=== PATIENT | female | born 1930 | race Two or more races ===

== ENCOUNTER 2019-07-31 16:21 | Inpatient (IN) | payer MEDICARE, OTHER ==
[~2019-07-31] VITALS: Ht 152.4 cm; Wt 59.0 kg
[2019-07-31] MEDS ORDERED: DEXTROSE 50% 50 ML DISP.SYRIN IV PRN (18:15)
[2019-07-31] MEDS ORDERED: MEMANTINE HCL 10 MG TABLET PO SCH (18:30)
[2019-07-31] MEDS ORDERED: MEROPENEM 500 MG VIAL IV SCH (18:30)
[2019-07-31] MEDS: DOCUSATE SODIUM 100 MG CAPSULE PO SCH (18:30)
[2019-07-31] MEDS ORDERED: SENNOSIDES 1 TABLET PO SCH (18:30)
[2019-07-31 19:00] VITALS: BP 133/54
--- NOTE | 2019-07-31 19:27 | NUR ---
Patient received from [facility]. Report was received from JUAN DIEGO Baker. Pt is oriented to self only. Pt is cooperative. Pt is on MRSA isolation. The family is present at the bed side. Pt is bed bound, unable to move in bed independently. Skin assessment is done, pt has left hip incisions under dressing. Pt amputations of left foot toes. history obtained from the family.
--- NOTE | 2019-07-31 20:00 | NUR ---
VSS 98.0-62-17 BP 119/42. SATS 100% ON O2 @ 2LITERS NC. PATIENT NEWLY ADMITTED APPROX. 3 HOURS AGO. COLOR SLIGHTLY PALE BUT FAIR. SKIN WARM, DRY, & INTACT. NO BEDSORES OR BREAKDOWNS. ABDOMEN SOFTLY DISTENDED WITH +BOWEL SOUNDS. NO GENTILE FOR INC OF BOWEL AND BLADDER. 1+ ANKLE EDEMAS WITH ALL PERIPHERAL PULSES+. NO SIGNS OF ACUTE CARDIAC/RESPIRATORY DISTRESS OR SUPPRESSION. NO OBVIOUS SIGNS OF PAIN.
[2019-07-31 20:29] VITALS: BP 119/42
[2019-07-31] MEDS: BLOOD SUGAR DIAGNOSTIC 1 EACH STRIP VI SCH (21:26)
[2019-07-31] MEDS: MEMANTINE HCL 5 MG TABLET PO SCH (21:28)
[2019-07-31] MEDS: INSULIN GLARGINE,HUM 300 UNITS/3 ML CARTRIDGE SQ SCH (21:40)
[2019-07-31] MEDS: INSULIN REGULAR, HUMAN 300 UNIT/3 ML VIAL SQ PRN (21:42)
--- NOTE | 2019-08-01 | NUR ---
NURSE PLACED #22 ANGIO TO RIGHT HAND. ACCUCHECK AT MKHEIPT=873 MG/DL--COVERED WITH 3 UNITS OF REGULAR INSULIN & ROUTINE LANTUS 8 UNITS. NURSE SCANNED BLADDER RANDOMLY AND FOUND 365 CC IN BLADDER. WILL WATCH PATIENTS OUTPUT
[2019-08-01] MEDS: MEROPENEM 500 MG in IV NORMAL SALINE 50 ML IV SCH ×3 (00:10→23:07)
[2019-08-01 04:00] VITALS: BP 135/56
[2019-08-01] MEDS: LEVOTHYROXINE SODIUM 100 MCG TABLET PO SCH (06:56)
[2019-08-01] MEDS: PANTOPRAZOLE SODIUM 40 MG TABLET.DR PO SCH (06:56)
[2019-08-01] MEDS: BLOOD SUGAR DIAGNOSTIC 1 EACH STRIP VI SCH ×4 (07:05→20:55)
--- NOTE | 2019-08-01 07:35 | NUR ---
PT ON BED WITH EYES CLOSED, EASILY AROUSABLE WHEN AWAKEN, NOT IN RESPIRATORY DISTRESS, RECEIVED WITH 02 AT 2L/NC FOR COMFORT BREATHING.KHMER SPEAKING ONLY WHEN SPOKEN TO. NO C/P PAIN WHEN ASKED, WITH HEPLOCK ON THE RIGHT HAND WITH GAUGE 22, NO SS OF INFILTRATION NOTED ON THE AREA.
[2019-08-01 07:54] VITALS: BP 128/51
[2019-08-01] MEDS ORDERED: PREGABALIN 50 MG CAPSULE PO SCH (09:00)
[2019-08-01] MEDS: DONEPEZIL 10 MG TABLET PO SCH (09:04)
[2019-08-01] MEDS: MEMANTINE HCL 5 MG TABLET PO SCH ×2 (09:05→20:48)
[2019-08-01] MEDS: PREGABALIN 25 MG CAPSULE PO SCH (09:05)
[2019-08-01] MEDS: DOCUSATE SODIUM 100 MG CAPSULE PO SCH ×2 (09:05→16:43)
[2019-08-01] MEDS: ALLOPURINOL 100 MG TABLET PO SCH (09:05)
[2019-08-01] MEDS: AMLODIPINE 5 MG TABLET PO SCH (09:06)
[2019-08-01] MEDS: INSULIN REGULAR, HUMAN 300 UNIT/3 ML VIAL SQ PRN ×2 (12:47→16:41)
[2019-08-01 16:08] VITALS: BP 116/48
--- NOTE | 2019-08-01 16:39 | NUR ---
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
--- NOTE | 2019-08-01 19:30 | NUR ---
PT'S ON CONTACT ISOLATION FOR MRSA OF BOTH NARES AND ESBL OF URINE. CONTINUE ON MEROPENEM IV FOR ESBL URINE. NO ADVERSE REACTION NOTED. AFEBRILE. NO HEMATURIA , BUT NOTED URINE WITH FOUL SMELL. BS CHECKED NOSS OF HYPERGLYCEMIA NOTED. PT DOESN'T CALL FOR HELP, NEEDS ANTICIPATED. TURNED AND REPOSITIONED .KEPT CLEAN AND DRY.
--- NOTE | 2019-08-01 19:30 | NUR ---
NSG: RECEIVED PT'S LYING ON BED. ON CONTACT ISOLATION FOR MRSA OF BOTH NARES AND ESBL OF URINE. CONTINUE ON MEROPENEM IV FOR ESBL URINE. NO ADVERSE REACTION NOTED. NO HEMATURIA , BUT NOTED URINE WITH FOUL SMELL. BS CHECKED AND LANTUS SUB-Q GIVEN ORDERED.BLOOD SUGAR 111MG/DL. PATIENT TURNED AND REPOSITIONED .KEPT CLEAN AND DRY.
[2019-08-01 19:45] VITALS: BP 115/42
[2019-08-01] MEDS: MUPIROCIN 2% OINT 22 GM TUBE NS SCH (20:48)
[2019-08-01] MEDS: INSULIN GLARGINE,HUM 300 UNITS/3 ML CARTRIDGE SQ SCH (20:59)
[2019-08-01] MEDS: ENOXAPARIN SODIUM 30 MG/0.3 ML DISP.SYRIN SQ SCH (21:02)
--- NOTE | 2019-08-02 | NUR ---
NSG: RESTING EYE CLOSE. NO S/S OF PAIN OR DISCOMFORT NOTED AT THIS TIME.
[2019-08-02 04:40] VITALS: BP 147/56
[2019-08-02] MEDS: LEVOTHYROXINE SODIUM 100 MCG TABLET PO SCH (06:07)
[2019-08-02] MEDS: PANTOPRAZOLE SODIUM 40 MG TABLET.DR PO SCH (06:08)
[2019-08-02] MEDS: HYDROCODONE/APAP 5-325MG TABLET PO PRN ×4 (06:29→19:42)
[2019-08-02] MEDS: BLOOD SUGAR DIAGNOSTIC 1 EACH STRIP VI SCH ×4 (06:49→21:38)
--- NOTE | 2019-08-02 06:54 | NUR ---
NSG: PT REMAIN CALM AND COOPERATIVE, C/O PAIN @ 0630 AM. NOR[place] 5/325 MG 1 TAB PO GIVEN FOR PAIN. NO RESPIRATORY DISTRESS, ON 02 @ 2L/NC FOR COMFORT BREATHING.ZAMBIAN SPEAKING ONLY WHEN SPOKEN TO. HEPLOCK ON THE RIGHT HAND WITH GAUGE 22, NO SS OF INFILTRATION NOTED ON THE AREA. RESTING IN BED COMFORTABLY.
[2019-08-02 08:00] VITALS: BP 117/45
[2019-08-02] MEDS: MUPIROCIN 2% OINT 22 GM TUBE NS SCH ×2 (08:22→21:31)
[2019-08-02] MEDS: ALLOPURINOL 100 MG TABLET PO SCH (08:23)
[2019-08-02] MEDS: PREGABALIN 25 MG CAPSULE PO SCH (08:23)
[2019-08-02] MEDS: MEMANTINE HCL 5 MG TABLET PO SCH ×2 (08:23→21:31)
[2019-08-02] MEDS: AMLODIPINE 5 MG TABLET PO SCH ×2 (08:26→08:42)
[2019-08-02] MEDS: DONEPEZIL 10 MG TABLET PO SCH (08:26)
[2019-08-02] MEDS: DOCUSATE SODIUM 100 MG CAPSULE PO SCH ×2 (08:26→16:27)
[2019-08-02 08:39] VITALS: BP 140/54
[2019-08-02] MEDS: MEROPENEM 500 MG in IV NORMAL SALINE 50 ML IV SCH ×2 (11:33→23:35)
[2019-08-02] MEDS: INSULIN REGULAR, HUMAN 300 UNIT/3 ML VIAL SQ PRN ×3 (12:16→21:43)
[2019-08-02 16:38] VITALS: BP 102/38
[2019-08-02 19:30] VITALS: BP 135/52
--- NOTE | 2019-08-02 19:30 | NUR ---
pt in stable condition, c/o pain. family is by the bedside.
[2019-08-02] MEDS: INSULIN GLARGINE,HUM 300 UNITS/3 ML CARTRIDGE SQ SCH (21:44)
[2019-08-02] MEDS: ENOXAPARIN SODIUM 30 MG/0.3 ML DISP.SYRIN SQ SCH (21:44)
[2019-08-03] MEDS: HYDROCODONE/APAP 5-325MG TABLET PO PRN ×2 (01:43→10:57)
--- NOTE | 2019-08-03 02:19 | NUR ---
No acute events overnight, pt having intermittent sleep with periods of being awake. No fever, no nausea and no vomiting. pt is well managed with current pain regimen
[2019-08-03 06:15] VITALS: BP 137/54
[2019-08-03] MEDS: LEVOTHYROXINE SODIUM 100 MCG TABLET PO SCH (06:24)
[2019-08-03] MEDS: PANTOPRAZOLE SODIUM 40 MG TABLET.DR PO SCH (06:25)
[2019-08-03] MEDS: BLOOD SUGAR DIAGNOSTIC 1 EACH STRIP VI SCH ×4 (06:37→21:06)
[2019-08-03 07:12] LABS: BASOPHILS % (AUTO) 0.2 % (0.0-2.0); EOSINOPHILS # (AUTO) 0.2 K/uL (0.0-0.7); EOSINOPHILS % (AUTO) 2.2 % (0.0-7.0); HEMATOCRIT 27.6 % (31.2-41.9); HEMOGLOBIN 9.1 g/dL (10.9-14.3); LYMPHOCYTES # (AUTO) 1.6 K/uL (20.0-40.0); MEAN CORPUSCULAR HEMOGLOBIN 30.2 uug (24.7-32.8); MEAN CORPUSCULAR HGB CONC 33 g/dL (32.3-35.6); MEAN CORPUSCULAR VOLUME 91.8 fL (75.5-95.3); MONOCYTES # (AUTO) 0.9 K/uL (2.0-10.0); MONOCYTES % (AUTO) 10.6 % (0.0-11.0); NEUTROPHILS # (AUTO) 5.7 K/uL (1.8-8.9); PLATELET COUNT (AUTO) 173 K/uL (179-408); RED BLOOD CELL COUNT(AUTO) 3.01 MIL/uL (3.63-4.92); WHITE BLOOD COUNT (AUTO) 8.3 K/uL (3.8-11.8)
[2019-08-03 07:16] LABS: CARBON DIOXIDE 25 mmol/L (21-32); CHLORIDE 108 mmol/L (98-107); CREATININE 2.3 mg/dL (0.6-1.3); GLUCOSE 84 mg/dL (74-106); MAGNESIUM 2.1 mg/dL (1.8-2.4); PHOSPHOROUS 4.1 mg/dL (2.5-4.9); UREA NITROGEN, BLOOD 58 mg/dL (7-18)
[2019-08-03 08:05] VITALS: BP 131/53
[2019-08-03] MEDS: DOCUSATE SODIUM 100 MG CAPSULE PO SCH ×2 (09:29→17:26)
[2019-08-03] MEDS: MEMANTINE HCL 5 MG TABLET PO SCH ×2 (09:29→20:57)
[2019-08-03] MEDS: ALLOPURINOL 100 MG TABLET PO SCH (09:29)
[2019-08-03] MEDS: PREGABALIN 25 MG CAPSULE PO SCH (09:29)
[2019-08-03] MEDS: ERGOCALCIFEROL 50,000 UNIT CAPSULE PO SCH (09:29)
[2019-08-03] MEDS: DONEPEZIL 10 MG TABLET PO SCH (09:29)
[2019-08-03] MEDS: MUPIROCIN 2% OINT 22 GM TUBE NS SCH ×2 (09:30→20:57)
[2019-08-03] MEDS: AMLODIPINE 5 MG TABLET PO SCH (09:30)
--- NOTE | 2019-08-03 11:21 | NUR ---
INDIVIDUALIZED PLAN OF CARE
[2019-08-03] MEDS: INSULIN REGULAR, HUMAN 300 UNIT/3 ML VIAL SQ PRN ×2 (11:52→21:07)
[2019-08-03] MEDS: MEROPENEM 500 MG in IV NORMAL SALINE 50 ML IV SCH (11:53)
[2019-08-03 15:40] VITALS: BP 122/44
[2019-08-03] MEDS ORDERED: IBUPROFEN 400 MG TABLET PO PRN (18:15)
--- NOTE | 2019-08-03 19:20 | NUR ---
patient currently sleeping, no signs of distress. family is by the bedside
--- NOTE | 2019-08-03 19:39 | NUR ---
Patient sleeping at this time, easily arousable, Pakistani speaking mostly. No acute distress noted. Pt. on O2 NC at 1LPM with O2 saturation of 96%. NO acute distress noted. Vital signs taken and stable for patient. Patient on IV ATB therapy of Merrem 500mg q 12hrs for ESBL of urine with NO adverse reaction noted. All other meds administered and tolerated well. All other needs attended, family at bed side, safety measures in place, call light left at bed side, endorsed to next shift and will continue with care.
[2019-08-03 20:00] VITALS: BP 129/47
[2019-08-03] MEDS: ACETAMINOPHEN 325 MG TABLET PO SCH (21:00)
[2019-08-03] MEDS: INSULIN GLARGINE,HUM 300 UNITS/3 ML CARTRIDGE SQ SCH (21:07)
[2019-08-03] MEDS: ENOXAPARIN SODIUM 30 MG/0.3 ML DISP.SYRIN SQ SCH (21:08)
[2019-08-04] MEDS: MEROPENEM 500 MG in IV NORMAL SALINE 50 ML IV SCH ×2 (00:17→11:19)
--- NOTE | 2019-08-04 02:23 | NUR ---
No acute events overnight, pt able to sleep during shift. pt being turned as needed to protect the skin. Tylenol given earlier. No sign of distress
[2019-08-04 05:00] VITALS: BP 138/55
[2019-08-04] MEDS: ACETAMINOPHEN 325 MG TABLET PO SCH ×3 (06:31→21:18)
[2019-08-04] MEDS: PANTOPRAZOLE SODIUM 40 MG TABLET.DR PO SCH (06:31)
[2019-08-04] MEDS: LEVOTHYROXINE SODIUM 100 MCG TABLET PO SCH (06:31)
[2019-08-04] MEDS: BLOOD SUGAR DIAGNOSTIC 1 EACH STRIP VI SCH ×4 (06:55→21:19)
[2019-08-04 07:39] VITALS: BP 122/43
[2019-08-04] MEDS: ALLOPURINOL 100 MG TABLET PO SCH (08:32)
[2019-08-04] MEDS: MEMANTINE HCL 5 MG TABLET PO SCH ×2 (08:32→21:18)
[2019-08-04] MEDS: DONEPEZIL 10 MG TABLET PO SCH (08:32)
[2019-08-04] MEDS: DOCUSATE SODIUM 100 MG CAPSULE PO SCH ×2 (08:33→16:21)
[2019-08-04] MEDS: PREGABALIN 25 MG CAPSULE PO SCH (08:33)
[2019-08-04] MEDS: MUPIROCIN 2% OINT 22 GM TUBE NS SCH ×2 (08:33→21:18)
[2019-08-04] MEDS: AMLODIPINE 5 MG TABLET PO SCH (08:33)
[2019-08-04 15:49] VITALS: BP 154/60
[2019-08-04] MEDS: INSULIN REGULAR, HUMAN 300 UNIT/3 ML VIAL SQ PRN ×2 (16:20→21:22)
--- NOTE | 2019-08-04 16:27 | NUR ---
Received patient sleeping in bed. not in distress. Continue oxygen at 2 LPM via nasal cannula. Patient keeps on sleeping but responsive. MD Davis notified. Patient is on lyrica 75mg daily at 9am. MD Davis ordered hold for the meantime. Patient is on Tylenol 650mg on routine basis. Continue therapy for increase strenght and endurance. Continue pain management. Continue blood sugar monitoring with sliding scale protocol. no signs of hypo/hyperglycemia. will continue monitor
[2019-08-04 20:00] VITALS: BP 125/59
[2019-08-04] MEDS ORDERED: ALBUTEROL SULFATE 2.5 MG/3 ML NEBU NEB PRN (21:00)
[2019-08-04] MEDS: ENOXAPARIN SODIUM 30 MG/0.3 ML DISP.SYRIN SQ SCH (21:21)
[2019-08-04] MEDS: INSULIN GLARGINE,HUM 300 UNITS/3 ML CARTRIDGE SQ SCH (21:22)
--- NOTE | 2019-08-04 21:30 | NUR ---
Pt responds to voice and tactile stimuli through murmuring, but keeps eyes closed and appears very drowsy. Unable to give PO pills at this time, due to patient's condition. No signs of pain or discomfort noted. Will continue to monitor. VS remains stable, within baseline parameters.
[2019-08-05] MEDS: MEROPENEM 500 MG in IV NORMAL SALINE 50 ML IV SCH ×3 (00:30→23:39)
[2019-08-05 05:00] VITALS: BP 120/57
--- NOTE | 2019-08-05 05:30 | NUR ---
Patient is more awake, and alert now. Verbally responsive and able to follow directions. Diaper changed. With large BM, soft consistency, yellowish in color. L hip original dressing falling off, photo of wound taken and reinforced original dressing. Good perineal care provided. Turned every 2 hours, will continue to monitor and give AM medications if fully awake.
[2019-08-05] MEDS: ACETAMINOPHEN 325 MG TABLET PO SCH ×3 (06:44→22:22)
[2019-08-05] MEDS: LEVOTHYROXINE SODIUM 100 MCG TABLET PO SCH (06:44)
[2019-08-05] MEDS: PANTOPRAZOLE SODIUM 40 MG TABLET.DR PO SCH (06:44)
[2019-08-05 07:12] LABS: BASOPHILS % (AUTO) 0.7 % (0.0-2.0); EOSINOPHILS # (AUTO) 0.1 K/uL (0.0-0.7); EOSINOPHILS % (AUTO) 2.1 % (0.0-7.0); HEMATOCRIT 29.7 % (31.2-41.9); HEMOGLOBIN 9.7 g/dL (10.9-14.3); LYMPHOCYTES # (AUTO) 1.4 K/uL (20.0-40.0); LYMPHOCYTES % (AUTO) 21.7 % (20.5-51.5); MEAN CORPUSCULAR HEMOGLOBIN 30.1 uug (24.7-32.8); MEAN CORPUSCULAR HGB CONC 33 g/dL (32.3-35.6); MEAN CORPUSCULAR VOLUME 91.9 fL (75.5-95.3); MONOCYTES # (AUTO) 0.9 K/uL (2.0-10.0); MONOCYTES % (AUTO) 13.2 % (0.0-11.0); NEUTROPHILS % (AUTO) 62.3 % (38.5-71.5); PLATELET COUNT (AUTO) 229 K/uL (179-408); RED BLOOD CELL COUNT(AUTO) 3.23 MIL/uL (3.63-4.92); WHITE BLOOD COUNT (AUTO) 6.5 K/uL (3.8-11.8)
--- NOTE | 2019-08-05 07:30 | NUR ---
Able to give AM meds at around 0640, tolerated well. However, initial BS check: 56 at 0650. Gave apple sauce and orange juice, rechecked at 0710: still 56. Rechecked at this time, BS: 93. AM nurse made aware, encouraged to eat good breakfast intake. Pt still alert and verbally responsive. VS stable.
[2019-08-05] MEDS: BLOOD SUGAR DIAGNOSTIC 1 EACH STRIP VI SCH ×4 (07:34→20:52)
[2019-08-05 08:20] LABS: ALANINE AMINOTRANSFERASE 13 U/L (14-59); ALKALINE PHOSPHATASE 173 U/L (50-136); ASPARTATE AMINOTRANSFERASE 21 U/L (15-37); CARBON DIOXIDE 26 mmol/L (21-32); CREATININE 2.1 mg/dL (0.6-1.3); GLUCOSE 64 mg/dL (74-106); MAGNESIUM 2.2 mg/dL (1.8-2.4); TOTAL PROTEIN, SERUM 6.2 g/dL (6.4-8.2); UREA NITROGEN, BLOOD 53 mg/dL (7-18)
[2019-08-05 08:40] VITALS: BP 143/48
[2019-08-05 08:56] LABS: BILIRUBIN,TOTAL 0.4 mg/dL (0.2-1.0); CHLORIDE 111 mmol/L (98-107); POTASSIUM 5.4 mmol/L (3.5-5.1)
[2019-08-05] MEDS: AMLODIPINE 5 MG TABLET PO SCH (09:16)
[2019-08-05] MEDS: DONEPEZIL 10 MG TABLET PO SCH (09:17)
[2019-08-05] MEDS: ALLOPURINOL 100 MG TABLET PO SCH (09:17)
[2019-08-05] MEDS: MUPIROCIN 2% OINT 22 GM TUBE NS SCH ×2 (09:17→20:06)
[2019-08-05] MEDS: MEMANTINE HCL 5 MG TABLET PO SCH ×2 (09:17→20:04)
[2019-08-05 14:16] LABS: CHOLESTEROL 104 mg/dL (<200); HDL CHOLESTEROL 41 mg/dL (40-60); PHOSPHOROUS 3.9 mg/dL (2.5-4.9); TRIGLYCERIDES 89 MG/DL (30-150)
--- NOTE | 2019-08-05 14:31 | NUR ---
Patient is AAO x2, able to express self in welsh at times. No acute distress. patient was very active throughout shift and awake for most of the activities; Patient was up on w/c to eat lunch during shift. Denies any pain at this time. Pt. on ATB therapy of Merrem 500mg IV Q 12 hrs. No adverse reaction noted. Pt. on PT/OT therapy. Needs attended on anticipation; Safety measures in place, call light left at bed side and will continue with care.
[2019-08-05 15:46] VITALS: BP 105/54
[2019-08-05 17:01] LABS: THYROID STIMULATING HORMONE 0.626 mIU/mL (0.358-3.740)
[2019-08-05] MEDS: INSULIN REGULAR, HUMAN 300 UNIT/3 ML VIAL SQ PRN ×2 (17:30→20:51)
--- NOTE | 2019-08-05 18:33 | NUR ---
No new change of condition noted at this time and will continue with care.
--- NOTE | 2019-08-05 19:20 | NUR ---
PATIENT IS IN BED, ALERT AND VERBALLY RESPONSIVE. AFEBRILE. NO RESPIRATORY DISTRESS. NO COMPLAINTS AT THIS TIME. PATIENT WITH FAMILY AT BEDSIDE. HEAD OF BED ELEVATED AT 30 DEGREES, WITH ONGOING O2 AT 2L/MIN VIA NC. JIM WELL. RESPIRATION EVEN AND LABORED. WILL CONTINUE TO MONITOR PATIENT. ALL NEEDS ATTENDED.
[2019-08-05 20:00] VITALS: BP 142/55
[2019-08-05] MEDS: ENOXAPARIN SODIUM 30 MG/0.3 ML DISP.SYRIN SQ SCH (20:02)
[2019-08-05] MEDS: HYDROCODONE/APAP 5-325MG TABLET PO PRN (20:05)
[2019-08-05] MEDS: INSULIN GLARGINE,HUM 300 UNITS/3 ML CARTRIDGE SQ SCH (20:50)
[2019-08-05] MEDS: Z GUARD REMEDY PASTE 57 GM TUBE TOP SCH (20:52)
[2019-08-06 05:00] VITALS: BP 139/54
[2019-08-06] MEDS: LEVOTHYROXINE SODIUM 100 MCG TABLET PO SCH (06:28)
[2019-08-06] MEDS: ACETAMINOPHEN 325 MG TABLET PO SCH ×3 (06:28→21:50)
[2019-08-06] MEDS: PANTOPRAZOLE SODIUM 40 MG TABLET.DR PO SCH (06:28)
--- NOTE | 2019-08-06 06:44 | NUR ---
PATIENT IN BED, ALERT AND VERBALLY RESPONSIVE. AFEBRILE. NO RESPIRATORY DISTRESS. PATIENT WITH EPISODE OF MOANING UPON MOVEMENT DURING ADLS, BUT PAIN RELIEVED ONCE DONE. RECEIVED DUE MEDICATIONS. TOLERATED WELL. CONTINUES TO BE ON O2 AT 2L/MIN VIA NC. RESPIRATION EVEN AND UNLABORED. NO SOB NOTED. IN NO RESPIRATORY OR ACUTE DISTRESS. KEPT PATIENT WARM, DRY, AND COMFORTABLE. LEFT PATIENT WITH BED WHEELS LOCKED, CALL LIGHT WITHIN REACH. BED AT LOW POSITION.
[2019-08-06] MEDS: BLOOD SUGAR DIAGNOSTIC 1 EACH STRIP VI SCH ×4 (06:49→21:00)
[2019-08-06 07:46] LABS: BASOPHILS # (AUTO) 0.1 K/uL (0.0-8.0); BASOPHILS % (AUTO) 0.9 % (0.0-2.0); EOSINOPHILS # (AUTO) 0.1 K/uL (0.0-0.7); EOSINOPHILS % (AUTO) 1.8 % (0.0-7.0); HEMATOCRIT 28.4 % (31.2-41.9); HEMOGLOBIN 9.1 g/dL (10.9-14.3); LYMPHOCYTES # (AUTO) 1.3 K/uL (20.0-40.0); LYMPHOCYTES % (AUTO) 21.4 % (20.5-51.5); MEAN CORPUSCULAR HEMOGLOBIN 29.7 uug (24.7-32.8); MEAN CORPUSCULAR HGB CONC 32 g/dL (32.3-35.6); MEAN CORPUSCULAR VOLUME 92.2 fL (75.5-95.3); MONOCYTES # (AUTO) 0.8 K/uL (2.0-10.0); MONOCYTES % (AUTO) 12.4 % (0.0-11.0); NEUTROPHILS % (AUTO) 63.5 % (38.5-71.5); PLATELET COUNT (AUTO) 229 K/uL (179-408); RED BLOOD CELL COUNT(AUTO) 3.08 MIL/uL (3.63-4.92); WHITE BLOOD COUNT (AUTO) 6.3 K/uL (3.8-11.8)
[2019-08-06 07:52] VITALS: BP 150/60
[2019-08-06] MEDS: ALLOPURINOL 100 MG TABLET PO SCH (08:15)
[2019-08-06] MEDS: AMLODIPINE 5 MG TABLET PO SCH (08:16)
[2019-08-06] MEDS: MEMANTINE HCL 5 MG TABLET PO SCH ×2 (08:16→21:49)
[2019-08-06] MEDS: DONEPEZIL 10 MG TABLET PO SCH (08:16)
[2019-08-06] MEDS: MUPIROCIN 2% OINT 22 GM TUBE NS SCH (08:17)
[2019-08-06] MEDS: Z GUARD REMEDY PASTE 57 GM TUBE TOP SCH ×2 (08:17→21:58)
[2019-08-06] MEDS: HYDROCODONE/APAP 5-325MG TABLET PO PRN (08:17)
[2019-08-06 08:25] LABS: ALANINE AMINOTRANSFERASE 16 U/L (14-59); ALKALINE PHOSPHATASE 167 U/L (50-136); ASPARTATE AMINOTRANSFERASE 20 U/L (15-37); BILIRUBIN,TOTAL 0.4 mg/dL (0.2-1.0); CARBON DIOXIDE 26 mmol/L (21-32); CHLORIDE 111 mmol/L (98-107); CREATININE 2.1 mg/dL (0.6-1.3); FERRITIN 290 ng/mL (8-252); GLUCOSE 96 mg/dL (74-106); MAGNESIUM 1.9 mg/dL (1.8-2.4); PHOSPHOROUS 4.3 mg/dL (2.5-4.9); POTASSIUM 5.7 mmol/L (3.5-5.1); TOTAL PROTEIN, SERUM 6.1 g/dL (6.4-8.2); UREA NITROGEN, BLOOD 48 mg/dL (7-18)
[2019-08-06 12:02] LABS: IRON, SERUM 20 ug/dL (50-175)
[2019-08-06] MEDS: INSULIN REGULAR, HUMAN 300 UNIT/3 ML VIAL SQ PRN ×2 (12:15→17:09)
[2019-08-06] MEDS: MEROPENEM 500 MG in IV NORMAL SALINE 50 ML IV SCH (12:16)
[2019-08-06 15:20] VITALS: BP 147/58
--- NOTE | 2019-08-06 15:53 | NUR ---
Patient is AAO x 2, able to express needs in czech. Vital signs stable. On continuos IV ATB therapy of Merrem 500mg IV Q12hrs. All due meds administered as ordered and scheduled. [place] 5/325mg 1 tab administered for pain and effective. Patient noted with abnormal labs and informed Dr. Davis. NO new change of condition noted during shift. Needs attended and met, safety measures in place and will continue with care.
--- NOTE | 2019-08-06 19:21 | NUR ---
Endorsed to PM nurse to F/U with MD regarding abnormal lab results.
[2019-08-06 20:25] VITALS: BP 139/53
[2019-08-06] MEDS: ENOXAPARIN SODIUM 30 MG/0.3 ML DISP.SYRIN SQ SCH (22:00)
[2019-08-06] MEDS: INSULIN GLARGINE,HUM 300 UNITS/3 ML CARTRIDGE SQ SCH (22:06)
[2019-08-07] MEDS: MEROPENEM 500 MG in IV NORMAL SALINE 50 ML IV SCH ×3 (00:11→23:33)
[2019-08-07] MEDS: HYDROCODONE/APAP 5-325MG TABLET PO PRN ×3 (01:18→18:20)
--- NOTE | 2019-08-07 03:40 | NUR ---
2ND MESSAGE LEFT WITH ABOUT PT NEEDING SOMETHING STRONGER FOR PAIN.
[2019-08-07 03:57] LABS: *OCCULT BLOOD STOOL NEGATIVE (NEGATIVE)
[2019-08-07 04:00] VITALS: BP 124/46
[2019-08-07] MEDS: ACETAMINOPHEN 325 MG TABLET PO SCH ×3 (06:00→22:18)
[2019-08-07] MEDS: LEVOTHYROXINE SODIUM 100 MCG TABLET PO SCH (06:42)
[2019-08-07] MEDS: PANTOPRAZOLE SODIUM 40 MG TABLET.DR PO SCH (06:42)
[2019-08-07 07:41] LABS: CARBON DIOXIDE 26 mmol/L (21-32); CHLORIDE 113 mmol/L (98-107); CREATININE 1.9 mg/dL (0.6-1.3); GLUCOSE 83 mg/dL (74-106); POTASSIUM 4.9 mmol/L (3.5-5.1); UREA NITROGEN, BLOOD 43 mg/dL (7-18)
[2019-08-07] MEDS: BLOOD SUGAR DIAGNOSTIC 1 EACH STRIP VI SCH ×4 (07:41→20:13)
[2019-08-07 07:52] LABS: BASOPHILS % (AUTO) 0.6 % (0.0-2.0); EOSINOPHILS # (AUTO) 0.2 K/uL (0.0-0.7); EOSINOPHILS % (AUTO) 3.5 % (0.0-7.0); HEMATOCRIT 28.5 % (31.2-41.9); HEMOGLOBIN 9.3 g/dL (10.9-14.3); LYMPHOCYTES # (AUTO) 1.5 K/uL (20.0-40.0); LYMPHOCYTES % (AUTO) 24.9 % (20.5-51.5); MEAN CORPUSCULAR HEMOGLOBIN 29.9 uug (24.7-32.8); MEAN CORPUSCULAR HGB CONC 32 g/dL (32.3-35.6); MEAN CORPUSCULAR VOLUME 92.3 fL (75.5-95.3); MONOCYTES # (AUTO) 0.6 K/uL (2.0-10.0); MONOCYTES % (AUTO) 9.6 % (0.0-11.0); NEUTROPHILS # (AUTO) 3.7 K/uL (1.8-8.9); NEUTROPHILS % (AUTO) 61.4 % (38.5-71.5); PLATELET COUNT (AUTO) 244 K/uL (179-408); RED BLOOD CELL COUNT(AUTO) 3.09 MIL/uL (3.63-4.92); WHITE BLOOD COUNT (AUTO) 6.1 K/uL (3.8-11.8)
[2019-08-07 08:03] VITALS: BP 144/51
[2019-08-07] MEDS: ALLOPURINOL 100 MG TABLET PO SCH (09:23)
[2019-08-07] MEDS: AMLODIPINE 5 MG TABLET PO SCH (09:23)
[2019-08-07] MEDS: DONEPEZIL 10 MG TABLET PO SCH (09:23)
[2019-08-07] MEDS: Z GUARD REMEDY PASTE 57 GM TUBE TOP SCH ×2 (09:25→20:20)
[2019-08-07] MEDS: FERROUS SULFATE SLOW RELEASE 45 MG (ELEMENTAL) TABEC PO SCH (09:30)
[2019-08-07] MEDS: MEMANTINE HCL 5 MG TABLET PO SCH ×2 (09:37→20:07)
--- NOTE | 2019-08-07 10:09 | NUR ---
Patient AAO x 2. NO acute distress. Vital signs stable. Due medications administered as ordered and scheduled and tolerated well. Pt. sitting up on wheel chair and with PT doing activities at this time will continue with care.
--- NOTE | 2019-08-07 15:15 | NUR ---
Spoke with Dr. Olivas changed [place] 5/325mg 1 tab PO PRN to Q 4HRSPRN instead of [id number].
[2019-08-07 15:41] VITALS: BP 159/62
--- NOTE | 2019-08-07 15:43 | NUR ---
INTERDISCIPLINARY TEAM CONFERENCE
--- NOTE | 2019-08-07 17:34 | NUR ---
Patient is alert and oriented x 2. NO acute distress noted. Pt. placed in RA during shift and tolerating well with O2 saturation of 95%. Vital signs are stable for patient. Left hip surgical site intact and dry. Covered with dressing. [place] 5/325 mg 1 tab prn administered for pain and effective. . Patient with 2 person max assist during care. All due medications administered. on IV ATB therapy of Merrem IV Q 12hrs. All other needs attended, family here with Pt. at this time, safety measures in place, call light left at bed side and will continue with care.
[2019-08-07 19:48] VITALS: BP 150/62
[2019-08-07] MEDS: INSULIN REGULAR, HUMAN 300 UNIT/3 ML VIAL SQ PRN (20:15)
[2019-08-07] MEDS: INSULIN GLARGINE,HUM 300 UNITS/3 ML CARTRIDGE SQ SCH (20:18)
[2019-08-07] MEDS: ENOXAPARIN SODIUM 30 MG/0.3 ML DISP.SYRIN SQ SCH (20:19)
--- NOTE | 2019-08-08 00:49 | NUR ---
Awake upon initial rounds. AAOx2 with periods of confusion. On fall precautions. Call proctor within reach. Tolerated po meds well. Compliant with care. On IV ABT given as scheduled. No ill effects noted. Right forearm heplock intact flushed and patent. On contact isolation for ESBL in urine. Incontinent of bowel and bladder. Kept clean and dry. BM noted this shift. Will monitor patient. Denies any pain nor any discomfort.
[2019-08-08 04:00] VITALS: BP 112/58
[2019-08-08] MEDS: LEVOTHYROXINE SODIUM 100 MCG TABLET PO SCH (06:18)
[2019-08-08] MEDS: ACETAMINOPHEN 325 MG TABLET PO SCH ×3 (06:18→21:26)
[2019-08-08] MEDS: PANTOPRAZOLE SODIUM 40 MG TABLET.DR PO SCH (06:18)
[2019-08-08] MEDS: BLOOD SUGAR DIAGNOSTIC 1 EACH STRIP VI SCH ×4 (06:23→20:20)
--- NOTE | 2019-08-08 07:33 | NUR ---
Patient noted resting in bed with towel over eyes, no facial cues of pain at this time, no signs of distress noted, call light in reach, bed locked and in lowest position, all needs met at this
[2019-08-08 08:00] VITALS: BP 129/54
[2019-08-08] MEDS: DONEPEZIL 10 MG TABLET PO SCH (08:35)
[2019-08-08] MEDS: FERROUS SULFATE SLOW RELEASE 45 MG (ELEMENTAL) TABEC PO SCH (08:35)
[2019-08-08] MEDS: ALLOPURINOL 100 MG TABLET PO SCH (08:36)
[2019-08-08] MEDS: AMLODIPINE 5 MG TABLET PO SCH (08:37)
[2019-08-08] MEDS: MEMANTINE HCL 5 MG TABLET PO SCH ×2 (08:42→20:14)
[2019-08-08] MEDS: Z GUARD REMEDY PASTE 57 GM TUBE TOP SCH ×2 (09:16→20:24)
[2019-08-08] MEDS: MEROPENEM 500 MG in IV NORMAL SALINE 50 ML IV SCH (11:51)
[2019-08-08] MEDS: INSULIN REGULAR, HUMAN 300 UNIT/3 ML VIAL SQ PRN (11:52)
[2019-08-08] MEDS: HYDROCODONE/APAP 5-325MG TABLET PO PRN (13:45)
[2019-08-08 16:54] VITALS: BP 122/56
--- NOTE | 2019-08-08 19:06 | NUR ---
Patient complaints of nerve pain in both feet, MD Olivas notified with orders for Lyrica 25 mg daily PRN
[2019-08-08 19:59] VITALS: BP 150/54
[2019-08-08] MEDS: INSULIN GLARGINE,HUM 300 UNITS/3 ML CARTRIDGE SQ SCH (20:23)
[2019-08-08] MEDS: ENOXAPARIN SODIUM 30 MG/0.3 ML DISP.SYRIN SQ SCH (20:23)
[2019-08-08] MEDS: PREGABALIN 25 MG CAPSULE PO PRN (20:26)
--- NOTE | 2019-08-08 21:06 | NUR ---
awake alert and oriented x2-3 with periods of confusion and disorientation @times. Needs attended. Tolerated po meds well. No acute distress noted. Lyrica 25 mg po given. Kept comfortable. Repositioned for comfort, Turned to sides. Accucheck @ 2100 126 with no coverage but Lantus given. Fall precautions maintained. Siderails up for safety. Incontinent of bowel and bladder. BM this shift. kept clean and dry. VSS. Will monitor patient.
[2019-08-09 04:00] VITALS: BP 159/66
[2019-08-09] MEDS: ACETAMINOPHEN 325 MG TABLET PO SCH ×3 (06:33→21:20)
[2019-08-09] MEDS: PANTOPRAZOLE SODIUM 40 MG TABLET.DR PO SCH (06:34)
[2019-08-09] MEDS: LEVOTHYROXINE SODIUM 100 MCG TABLET PO SCH (06:34)
[2019-08-09] MEDS: BLOOD SUGAR DIAGNOSTIC 1 EACH STRIP VI SCH ×4 (06:37→20:21)
--- NOTE | 2019-08-09 07:14 | NUR ---
Patient noted resting in bed with eyes closed, no facial cues of pain at this time, no signs of distress noted, call light in reach, bed locked and in lowest position, all needs met at this time
[2019-08-09 08:00] VITALS: BP 165/67
[2019-08-09] MEDS: FERROUS SULFATE SLOW RELEASE 45 MG (ELEMENTAL) TABEC PO SCH (08:13)
[2019-08-09] MEDS: MEMANTINE HCL 5 MG TABLET PO SCH ×2 (08:13→20:17)
[2019-08-09] MEDS: ALLOPURINOL 100 MG TABLET PO SCH (08:13)
[2019-08-09] MEDS: DONEPEZIL 10 MG TABLET PO SCH (08:13)
[2019-08-09] MEDS: HYDROCODONE/APAP 5-325MG TABLET PO PRN ×2 (08:14→15:14)
[2019-08-09] MEDS: AMLODIPINE 5 MG TABLET PO SCH (08:14)
[2019-08-09] MEDS: Z GUARD REMEDY PASTE 57 GM TUBE TOP SCH ×2 (08:15→20:28)
[2019-08-09 16:41] VITALS: BP 137/54
[2019-08-09] MEDS: INSULIN GLARGINE,HUM 300 UNITS/3 ML CARTRIDGE SQ SCH (20:23)
[2019-08-09] MEDS: ENOXAPARIN SODIUM 30 MG/0.3 ML DISP.SYRIN SQ SCH (20:24)
[2019-08-09 20:41] VITALS: BP 132/57
--- NOTE | 2019-08-09 21:22 | NUR ---
Resting in bed upon initial rounds. AAOx2-3 VSS Family in to visit. Needs attended. Kept comfortable. Will monitor patient. Tolerated po meds well. Compliant with meds and care. On Lovenox for VTE. Fall precautions maintained. Bed alarm on. Call proctor within reach. Siderails up for safety. Bedtime care done. Incontinent of bowel and bladder. Kept clean and dry. BM noted this shift. Contact isolation maintained for ESBL in urine. Will monitor patient.
[2019-08-10 05:00] VITALS: BP 158/61
[2019-08-10] MEDS: PANTOPRAZOLE SODIUM 40 MG TABLET.DR PO SCH (06:14)
[2019-08-10] MEDS: ACETAMINOPHEN 325 MG TABLET PO SCH ×3 (06:14→21:07)
[2019-08-10] MEDS: LEVOTHYROXINE SODIUM 100 MCG TABLET PO SCH (06:16)
[2019-08-10] MEDS: BLOOD SUGAR DIAGNOSTIC 1 EACH STRIP VI SCH ×4 (06:33→20:53)
[2019-08-10 07:35] LABS: BASOPHILS # (AUTO) 0.2 K/uL (0.0-8.0); BASOPHILS % (AUTO) 2.8 % (0.0-2.0); EOSINOPHILS # (AUTO) 0.2 K/uL (0.0-0.7); EOSINOPHILS % (AUTO) 2.1 % (0.0-7.0); HEMATOCRIT 27.2 % (31.2-41.9); HEMOGLOBIN 8.9 g/dL (10.9-14.3); LYMPHOCYTES # (AUTO) 1.3 K/uL (20.0-40.0); LYMPHOCYTES % (AUTO) 18.6 % (20.5-51.5); MEAN CORPUSCULAR HEMOGLOBIN 30.2 uug (24.7-32.8); MEAN CORPUSCULAR HGB CONC 33 g/dL (32.3-35.6); MEAN CORPUSCULAR VOLUME 92.4 fL (75.5-95.3); MONOCYTES # (AUTO) 0.5 K/uL (2.0-10.0); MONOCYTES % (AUTO) 7.1 % (0.0-11.0); NEUTROPHILS % (AUTO) 69.4 % (38.5-71.5); PLATELET COUNT (AUTO) 248 K/uL (179-408); RED BLOOD CELL COUNT(AUTO) 2.95 MIL/uL (3.63-4.92); WHITE BLOOD COUNT (AUTO) 7.2 K/uL (3.8-11.8)
[2019-08-10 08:25] VITALS: BP 153/59
[2019-08-10 08:31] LABS: ALANINE AMINOTRANSFERASE 30 U/L (14-59); ALKALINE PHOSPHATASE 162 U/L (50-136); ASPARTATE AMINOTRANSFERASE 40 U/L (15-37); BILIRUBIN,TOTAL 0.4 mg/dL (0.2-1.0); CARBON DIOXIDE 21 mmol/L (21-32); CHLORIDE 111 mmol/L (98-107); CREATININE 1.8 mg/dL (0.6-1.3); GLUCOSE 106 mg/dL (74-106); MAGNESIUM 1.6 mg/dL (1.8-2.4); PHOSPHOROUS 3.6 mg/dL (2.5-4.9); UREA NITROGEN, BLOOD 26 mg/dL (7-18)
[2019-08-10] MEDS: FERROUS SULFATE SLOW RELEASE 45 MG (ELEMENTAL) TABEC PO SCH (08:33)
[2019-08-10] MEDS: ALLOPURINOL 100 MG TABLET PO SCH (08:33)
[2019-08-10] MEDS: DONEPEZIL 10 MG TABLET PO SCH (08:33)
[2019-08-10] MEDS: MEMANTINE HCL 5 MG TABLET PO SCH ×2 (08:34→20:51)
[2019-08-10] MEDS: ERGOCALCIFEROL 50,000 UNIT CAPSULE PO SCH (08:34)
[2019-08-10] MEDS: AMLODIPINE 5 MG TABLET PO SCH (08:34)
[2019-08-10] MEDS: Z GUARD REMEDY PASTE 57 GM TUBE TOP SCH ×2 (08:35→20:52)
--- NOTE | 2019-08-10 08:53 | NUR ---
Patient noted sitting up in bed, no complaints of pain noted, patient pre medicated with [place] before therapy, no signs of distress noted, call light in reach, bed locked and in lowest position, all needs met at this time
[2019-08-10] MEDS ORDERED: MAGNESIUM OXIDE 400 MG TABLET PO ONE (12:00)
[2019-08-10] MEDS: PREGABALIN 25 MG CAPSULE PO PRN (12:33)
[2019-08-10 16:25] LABS: *BILIRUBIN,URIN NEGATIVE (NEGATIVE); *BLOOD, URINE TRACE (NEGATIVE); *CLARITY,URINE SLIGHTLY CLOUDY (CLEAR); *COLOR,URINE YELLOW (YELLOW); *KETONES,URINE NEGATIVE (NEGATIVE); *UROBILINOGEN,URINE 0.2 E.U./dl (NORMAL); LEUKOCYTE ESTERASE ,URINE 1+ (NEGATIVE); NITRITE, URINE NEGATIVE (NEGATIVE); UGLUCOSE NEGATIVE (NEGATIVE)
--- NOTE | 2019-08-10 16:30 | NUR ---
URINE COLLECTED AT THIS TIME VIA IN AND OUT CATHETERIZATION. STOOL COLLECTED FOR SUSPECTED C.DIFF, ORDER RECEIVED FROM MD MEZA
[2019-08-10 16:31] LABS: BACTERIA,URINE MODERATE /HPF (NONE SEEN); SQUAMOUS EPITHELIAL CELL,UR MODERATE /HPF (NONE SEEN); WBC,URINE TNTC /HPF (0-3)
[2019-08-10 16:32] LABS: MUCUS,URINE MODERATE /LPF (0-FEW); URINE AMORPHOUS URATE MANY /HPF
[2019-08-10 16:51] VITALS: BP 146/52
--- NOTE | 2019-08-10 19:21 | NUR ---
RECEIVED PATIENT IN BED, ALERT AND VERBALLY RESPONSIVE. [place] SPEAKING. CAN MAKE NEEDS KNOWN. AFEBRILE. NO RESPIRATORY DISTRESS. NO COMPLAINTS OF PAIN AT THIS TIME. HEAD OF BED ELEVATED AT 30 DEGREES. FALL AND SAFETY PRECAUTIONS OBSERVED. CALL LIGHT WITHIN REACH, BED WHEELS LOCKED, BED AT LOW POSITION. SIDE RAILS X 2 UP. ALL NEEDS ATTENDED. WILL CONTINUE TO MONITOR PATIENT.
[2019-08-10 20:00] VITALS: BP 136/41
--- NOTE | 2019-08-10 20:36 | NUR ---
PATIENT'S SON REPORTED PATIENT HAVING COMPLAINTS OF TINGLING AT BILATERAL LEGS. PATIENT WITH ORDER FOR LYRICA 25MG DAILY PRN AND HAS RECEIVED LYRICA EARLIER TODAY. DR THOMAS MADE AWARE OF PATIENT'S COMPLAINT OF TINGLING WITH ORDER FOR LYRICA 25MG Q12HRS PRN. WILL CONTINUE TO MONITOR PATIENT.
[2019-08-10] MEDS: ENOXAPARIN SODIUM 30 MG/0.3 ML DISP.SYRIN SQ SCH (20:51)
[2019-08-10] MEDS ORDERED: PREGABALIN 25 MG CAPSULE PO PRN (21:00)
[2019-08-10] MEDS: INSULIN GLARGINE,HUM 300 UNITS/3 ML CARTRIDGE SQ SCH (21:00)
[2019-08-11 05:40] VITALS: BP 128/55
--- NOTE | 2019-08-11 05:58 | NUR ---
PATIENT IS IN BED, ASLEEP AT THIS TIME. SLEPT THROUGH THE NIGHT. NO COMPLAINTS OF PAIN, DISCOMFORT OR TINGLING THROUGHOUT THE NIGHT. KEPT PATIENT WARM, DRY, AND COMFORTABLE. FALL AND SAFETY PRECAUTIONS OBSERVED. KEPT CALL LIGHT WITHIN REACH. ALL NEEDS ATTENDED.
[2019-08-11] MEDS: PANTOPRAZOLE SODIUM 40 MG TABLET.DR PO SCH (06:46)
[2019-08-11] MEDS: ACETAMINOPHEN 325 MG TABLET PO SCH ×3 (06:46→21:18)
[2019-08-11] MEDS: LEVOTHYROXINE SODIUM 100 MCG TABLET PO SCH (06:46)
[2019-08-11] MEDS: BLOOD SUGAR DIAGNOSTIC 1 EACH STRIP VI SCH ×4 (07:05→20:11)
[2019-08-11] MEDS: AMLODIPINE 5 MG TABLET PO SCH (08:17)
[2019-08-11] MEDS: FERROUS SULFATE SLOW RELEASE 45 MG (ELEMENTAL) TABEC PO SCH (08:17)
[2019-08-11] MEDS: MEMANTINE HCL 5 MG TABLET PO SCH ×2 (08:18→20:03)
[2019-08-11] MEDS: ALLOPURINOL 100 MG TABLET PO SCH (08:18)
[2019-08-11] MEDS: DONEPEZIL 10 MG TABLET PO SCH (08:18)
[2019-08-11] MEDS: Z GUARD REMEDY PASTE 57 GM TUBE TOP SCH ×2 (08:18→20:18)
[2019-08-11 08:20] VITALS: BP 164/66
[2019-08-11] MEDS: INSULIN REGULAR, HUMAN 300 UNIT/3 ML VIAL SQ PRN (11:54)
[2019-08-11] MEDS: HYDROCODONE/APAP 5-325MG TABLET PO PRN (12:31)
[2019-08-11 15:27] VITALS: BP 155/62
--- NOTE | 2019-08-11 15:54 | NUR ---
PATIENT CONTINUE THERAPY FOR AMBULATION, INCREASE ENDURANCE AND STRENGHT. AWAITING FOR STOOL SPECIMEN RESULT FOR C-DIFF. NOT IN DISTRESS. CONTINUE SKIN CARE PROVIDED. WILL CONTINUE MONITOR
--- NOTE | 2019-08-11 16:35 | NUR ---
PATIENT URINE RESULT RELAYED TO MD BURCIAGA. NO NEW ORDER OF THIS TIME.
[2019-08-11 20:00] VITALS: BP 141/55
[2019-08-11] MEDS: INSULIN GLARGINE,HUM 300 UNITS/3 ML CARTRIDGE SQ SCH (20:13)
[2019-08-11] MEDS: ENOXAPARIN SODIUM 30 MG/0.3 ML DISP.SYRIN SQ SCH (20:14)
--- NOTE | 2019-08-12 01:12 | NUR ---
Condition unchanged. awake alert and oriented x2-3. VSS On contact isolation for ESBL in urine. Incontinent of bowel and bladder. BM noted this shift. On fall precautions. Call proctor within reach. Siderails up for safety. Tolerated po meds well. Compliant with care and meds. Needs attended. Kept comfortable. Will monitor patient.
[2019-08-12 05:00] VITALS: BP 136/51
[2019-08-12] MEDS: ACETAMINOPHEN 325 MG TABLET PO SCH ×3 (06:15→21:12)
[2019-08-12] MEDS: LEVOTHYROXINE SODIUM 100 MCG TABLET PO SCH (06:16)
[2019-08-12] MEDS: PANTOPRAZOLE SODIUM 40 MG TABLET.DR PO SCH (06:16)
[2019-08-12] MEDS: BLOOD SUGAR DIAGNOSTIC 1 EACH STRIP VI SCH ×4 (06:32→20:17)
--- NOTE | 2019-08-12 06:48 | NUR ---
End of shift report: AAOx3-4 vital signs stable. Quiet night. Repositioned for comfort. Turned to sides. Incontinent of BM x3 Kept clean and dry. Left hip dressing intact, healing well. No distress noted. No complaints presented during shift.
[2019-08-12 08:00] VITALS: BP 149/52
[2019-08-12] MEDS: HYDROCODONE/APAP 5-325MG TABLET PO PRN (08:15)
[2019-08-12] MEDS: FERROUS SULFATE SLOW RELEASE 45 MG (ELEMENTAL) TABEC PO SCH (08:45)
[2019-08-12] MEDS: MEMANTINE HCL 5 MG TABLET PO SCH ×2 (08:45→20:10)
[2019-08-12] MEDS: ALLOPURINOL 100 MG TABLET PO SCH (08:46)
[2019-08-12] MEDS: AMLODIPINE 5 MG TABLET PO SCH (08:46)
[2019-08-12] MEDS: DONEPEZIL 10 MG TABLET PO SCH (08:46)
[2019-08-12] MEDS: Z GUARD REMEDY PASTE 57 GM TUBE TOP SCH ×2 (08:47→20:26)
--- NOTE | 2019-08-12 10:42 | NUR ---
Received patient in room, awake. Pt. is AAO x 2-3. IN NO acute distress or SOB noted. Patient S/P Cervical Laminectomy. Surgical site on lower neck with kayla, dry and open to air. Vital signs taken and stable. Patient noted with severe upper and lower left sided weakness. F/C in place for retention; intact and patent. Pt. noted with nausea/vomiting, paged trains service conductor MD to reconcile meds and regarding pt.'s condition, waiting trains service conductor back. Needs attended, safety measures in place and will continue with care. Addendum: 08/12/19 at 1259 by JOSE RAUL ZAMORA RN RN WRONG PATIENT CHARTING.
--- NOTE | 2019-08-12 17:40 | NUR ---
Patient came back from F/U appointment, VS stable. NO acute distress noted. Left hip surgical site kayla removed with steri-strips and open to air and WBAT on LLE. For another F/U appointment with Dr. Aguilar in 3 month and new x-ray. NO c/o pain at this time. BS checked and 107mg/dl. Family feeding patient dinner now. Discussed plan of care and patient condition with family. Needs attended and met. will continue with care.
[2019-08-12] MEDS ORDERED: SHARK LIVER OIL/PETROLAT OINT 60 GM TUBE RC PRN (19:30)
--- NOTE | 2019-08-12 19:37 | NUR ---
Endorsed to next shift.
[2019-08-12 20:02] VITALS: BP 143/54
[2019-08-12] MEDS: INSULIN REGULAR, HUMAN 300 UNIT/3 ML VIAL SQ PRN (20:20)
[2019-08-12] MEDS: INSULIN GLARGINE,HUM 300 UNITS/3 ML CARTRIDGE SQ SCH (20:21)
[2019-08-12] MEDS: ENOXAPARIN SODIUM 30 MG/0.3 ML DISP.SYRIN SQ SCH (20:22)
[2019-08-12] MEDS: PREGABALIN 25 MG CAPSULE PO SCH (21:12)
--- NOTE | 2019-08-12 23:46 | NUR ---
awake upon initial rounds. AAOx2-3 VSS No acute distress noted. Fall precautions maintained. Call proctor within reach. Left hip incision with steri strips ALVAREZ. No complaints presented during shift. Will monitor patient. Tolerated po meds well. Bedtime care done. Incontinent of bowel and bladder. Kept clean and dry. Siderails up for safety.
[2019-08-13 04:00] VITALS: BP 139/73
[2019-08-13] MEDS: PANTOPRAZOLE SODIUM 40 MG TABLET.DR PO SCH (06:20)
[2019-08-13] MEDS: ACETAMINOPHEN 325 MG TABLET PO SCH ×3 (06:20→21:25)
[2019-08-13] MEDS: PREGABALIN 25 MG CAPSULE PO SCH ×3 (06:20→21:25)
[2019-08-13] MEDS: LEVOTHYROXINE SODIUM 100 MCG TABLET PO SCH (06:21)
[2019-08-13] MEDS: BLOOD SUGAR DIAGNOSTIC 1 EACH STRIP VI SCH ×4 (06:32→21:29)
[2019-08-13 07:40] VITALS: BP 160/56
[2019-08-13] MEDS: HYDROCODONE/APAP 5-325MG TABLET PO PRN (07:43)
[2019-08-13] MEDS: INSULIN REGULAR, HUMAN 300 UNIT/3 ML VIAL SQ PRN (07:47)
[2019-08-13] MEDS: DONEPEZIL 10 MG TABLET PO SCH (09:03)
[2019-08-13] MEDS: FERROUS SULFATE SLOW RELEASE 45 MG (ELEMENTAL) TABEC PO SCH (09:03)
[2019-08-13] MEDS: ALLOPURINOL 100 MG TABLET PO SCH (09:03)
[2019-08-13] MEDS: Z GUARD REMEDY PASTE 57 GM TUBE TOP SCH ×2 (09:03→21:29)
[2019-08-13] MEDS: AMLODIPINE 5 MG TABLET PO SCH (09:03)
[2019-08-13] MEDS: MEMANTINE HCL 5 MG TABLET PO SCH ×2 (09:03→21:25)
--- NOTE | 2019-08-13 09:53 | NUR ---
PATIENT CONTINUE PAIN MANAGEMENT PRIOR TO THERAPY WITH GOOD EFFECT AND ROUTINE LYRICA 25MG EVERY 8 HOURS. CONTINUE OXYGEN AT 2LPM VIA NASAL CANNULA. NO COMPLAINT VOICED DURING ROUNDS. CONTINUE SKIN CARE PROVIDED. NOT IN DISTRESS. PATIENT NEGATIVE RODS FOR URINE COLLECTION AND NO TOXICITY FOR STOOL. ASK MD IF NEED TO CONTINUE ISOLATION. WILL CONTINUE MONITOR
--- NOTE | 2019-08-13 12:25 | NUR ---
PATIENT SEEN AND EXAMINED BY MD BURCIAGA, ORDERED D/C ISOLATION, NEGATIVE TEST FOR UA AND STOOL FOR C DIFF. WILL CONTINUE MONITOR
[2019-08-13 15:34] VITALS: BP 143/47
[2019-08-13 20:38] VITALS: BP 130/42
[2019-08-13] MEDS: INSULIN GLARGINE,HUM 300 UNITS/3 ML CARTRIDGE SQ SCH (21:32)
[2019-08-13] MEDS: ENOXAPARIN SODIUM 30 MG/0.3 ML DISP.SYRIN SQ SCH (21:32)
[2019-08-14 05:45] VITALS: BP 110/64
--- NOTE | 2019-08-14 05:47 | NUR ---
No acute events overnight. pt is sating well on room air. No shortness of breath, no fever, no nausea and no vomiting. Pt able to sleep during shift.
[2019-08-14] MEDS: PREGABALIN 25 MG CAPSULE PO SCH ×3 (06:29→21:01)
[2019-08-14] MEDS: PANTOPRAZOLE SODIUM 40 MG TABLET.DR PO SCH (06:29)
[2019-08-14] MEDS: LEVOTHYROXINE SODIUM 100 MCG TABLET PO SCH (06:29)
[2019-08-14] MEDS: ACETAMINOPHEN 325 MG TABLET PO SCH ×3 (06:29→21:01)
--- NOTE | 2019-08-14 06:51 | NUR ---
pt hypoglycemic this AM with BS of 31, pt was asymptomatic. 8 ounces of apple juice given. will Reassess BS in 15 minutes, to be notified.
[2019-08-14] MEDS: BLOOD SUGAR DIAGNOSTIC 1 EACH STRIP VI SCH ×4 (06:52→20:48)
[2019-08-14] MEDS: HYDROCODONE/APAP 5-325MG TABLET PO PRN (08:10)
[2019-08-14 08:14] VITALS: BP 166/59
[2019-08-14] MEDS: Z GUARD REMEDY PASTE 57 GM TUBE TOP SCH ×2 (09:41→20:48)
[2019-08-14] MEDS: FERROUS SULFATE SLOW RELEASE 45 MG (ELEMENTAL) TABEC PO SCH (09:41)
[2019-08-14] MEDS: ALLOPURINOL 100 MG TABLET PO SCH (09:41)
[2019-08-14] MEDS: AMLODIPINE 5 MG TABLET PO SCH (09:42)
[2019-08-14] MEDS: DONEPEZIL 10 MG TABLET PO SCH (09:42)
[2019-08-14] MEDS: MEMANTINE HCL 5 MG TABLET PO SCH ×2 (09:42→20:48)
--- NOTE | 2019-08-14 14:03 | NUR ---
INTERDISCIPLINARY TEAM CONFERENCE
[2019-08-14 18:06] VITALS: BP 135/51
--- NOTE | 2019-08-14 18:07 | NUR ---
RECEIVED PATIENT AWAKE IN BED IN STABLE CONDITION. ON ROOM AIR WITH 96% SPO2. CONTINUE PAIN MANAGEMENT PRIOR TO THERAPY AND ROUTINE LYRICA 25MG EVERY 8HOURS. NOT IN DISTRESS. CONTINUE ACCU CHECK WITH SLIDING SCALE PROTOCOL. WILL CONTINUE MONITOR
--- NOTE | 2019-08-14 19:36 | NUR ---
PATIENT IS IN BED, ALERT AND VERBALLY RESPONSIVE. DENIES PAIN AT THIS TIME. NO RESPIRATORY OR ACUTE DISTRESS AT THIS TIME. ON ROOM AIR, RESPIRATIONS EVEN AND UNLABORED. FALL AND SAFETY PRECAUTIONS OBSERVED, WILL CONTINUE TO MONITOR PATIENT. ALL NEEDS ATTENDED.
[2019-08-14 20:35] VITALS: BP 125/6
[2019-08-14] MEDS: INSULIN GLARGINE,HUM 300 UNITS/3 ML CARTRIDGE SQ SCH (20:48)
[2019-08-14] MEDS: ENOXAPARIN SODIUM 30 MG/0.3 ML DISP.SYRIN SQ SCH (20:50)
[2019-08-14 22:21] VITALS: BP 125/68
[2019-08-15 04:40] VITALS: BP 155/60
[2019-08-15] MEDS: ACETAMINOPHEN 325 MG TABLET PO SCH ×3 (06:06→21:02)
[2019-08-15] MEDS: PANTOPRAZOLE SODIUM 40 MG TABLET.DR PO SCH (06:06)
[2019-08-15] MEDS: LEVOTHYROXINE SODIUM 100 MCG TABLET PO SCH (06:06)
[2019-08-15] MEDS: PREGABALIN 25 MG CAPSULE PO SCH ×3 (06:06→21:02)
--- NOTE | 2019-08-15 06:12 | NUR ---
PATIENT IS IN BED WITH HEAD OF BED ELEVATED AT 20 DEGREES, ALERT AND VERBALLY RESPONSIVE. CAN MAKE NEEDS KNOWN. SPEAKS MOSTLY GREEK. DENIES DIFFICULTY BREATHING. RESPIRATIONS EVEN AND UNLABORED. FALL AND SAFETY PRECAUTIONS OBSERVED. RECEIVED 1-PERSON ASSIST WITH ADLS. LEFT PATIENT IN BED WITH BED WHEELS LOCKED, CALL LIGHT AND PERSONAL BELONGINGS WITHIN REACH. BED AT LOW POSITION AND BED ALARM ON.
[2019-08-15] MEDS: BLOOD SUGAR DIAGNOSTIC 1 EACH STRIP VI SCH ×4 (06:45→20:58)
[2019-08-15 07:23] LABS: BASOPHILS # (AUTO) 0.1 K/uL (0.0-8.0); BASOPHILS % (AUTO) 0.7 % (0.0-2.0); EOSINOPHILS # (AUTO) 0.1 K/uL (0.0-0.7); EOSINOPHILS % (AUTO) 1.4 % (0.0-7.0); HEMOGLOBIN 9.6 g/dL (10.9-14.3); LYMPHOCYTES # (AUTO) 1.9 K/uL (20.0-40.0); LYMPHOCYTES % (AUTO) 22.1 % (20.5-51.5); MEAN CORPUSCULAR HEMOGLOBIN 29.7 uug (24.7-32.8); MEAN CORPUSCULAR HGB CONC 32 g/dL (32.3-35.6); MEAN CORPUSCULAR VOLUME 93.1 fL (75.5-95.3); MONOCYTES # (AUTO) 0.7 K/uL (2.0-10.0); MONOCYTES % (AUTO) 7.8 % (0.0-11.0); NEUTROPHILS # (AUTO) 5.7 K/uL (1.8-8.9); PLATELET COUNT (AUTO) 389 K/uL (179-408); RED BLOOD CELL COUNT(AUTO) 3.22 MIL/uL (3.63-4.92); WHITE BLOOD COUNT (AUTO) 8.4 K/uL (3.8-11.8)
[2019-08-15 07:31] VITALS: BP 151/56
[2019-08-15 07:38] LABS: CARBON DIOXIDE 25 mmol/L (21-32); CHLORIDE 110 mmol/L (98-107); CREATININE 1.7 mg/dL (0.6-1.3); GLUCOSE 125 mg/dL (74-106); MAGNESIUM 1.7 mg/dL (1.8-2.4); PHOSPHOROUS 3.8 mg/dL (2.5-4.9); POTASSIUM 4.7 mmol/L (3.5-5.1); UREA NITROGEN, BLOOD 21 mg/dL (7-18)
[2019-08-15] MEDS: ALLOPURINOL 100 MG TABLET PO SCH (09:17)
[2019-08-15] MEDS: MEMANTINE HCL 5 MG TABLET PO SCH ×2 (09:17→20:57)
[2019-08-15] MEDS: FERROUS SULFATE SLOW RELEASE 45 MG (ELEMENTAL) TABEC PO SCH (09:17)
[2019-08-15] MEDS: HYDROCODONE/APAP 5-325MG TABLET PO PRN (09:17)
[2019-08-15] MEDS: DONEPEZIL 10 MG TABLET PO SCH (09:17)
[2019-08-15] MEDS: AMLODIPINE 5 MG TABLET PO SCH (09:18)
[2019-08-15] MEDS: Z GUARD REMEDY PASTE 57 GM TUBE TOP SCH ×2 (09:18→20:58)
--- NOTE | 2019-08-15 12:30 | NUR ---
BS of 139mg/dl, held insulin sliding scale dose because Pt. only ate 50% of meal.
[2019-08-15 15:07] VITALS: BP 149/50
[2019-08-15] MEDS ORDERED: MAGNESIUM OXIDE 400 MG TABLET PO ONE (15:30)
[2019-08-15] MEDS: INSULIN REGULAR, HUMAN 300 UNIT/3 ML VIAL SQ PRN (16:49)
--- NOTE | 2019-08-15 19:08 | NUR ---
Patient is AAO x 2, NO SOB or acute distress noted. NO complains of pain at this time. Due medications administered and tolerated well. Patient on continuos PT/OT therapy. patient with one person assist. Skin kept clean and dry, Surgical site on Left hip with steri-strips and open to air. NO s/sx of infection noted. Needs attended and met. Safety measures in place, call light left at bed side and will continue with care.
[2019-08-15 19:33] VITALS: BP 122/45
--- NOTE | 2019-08-15 19:39 | NUR ---
RECEIVED PATIENT IN BED, ALERT AND VERBALLY RESPONSIVE. DENIES PAIN AT THIS TIME. AWAKE AND ABLE TO MAKE NEEDS KNOWN. TOLERATING ROOM AIR, NO RESPIRATORY DISTRESS. RESPIRATIONS EVEN AND UNLABORED. FALL AND SAFETY PRECAUTIONS OBSERVED, WILL CONTINUE TO MONITOR PATIENT. ALL NEEDS ATTENDED.
[2019-08-15] MEDS: INSULIN GLARGINE,HUM 300 UNITS/3 ML CARTRIDGE SQ SCH (20:57)
[2019-08-15] MEDS: ENOXAPARIN SODIUM 30 MG/0.3 ML DISP.SYRIN SQ SCH (20:57)
[2019-08-16 04:30] VITALS: BP 149/54
--- NOTE | 2019-08-16 05:41 | NUR ---
PATIENT IS ASLEEP IN BED, EASILY AROUSED. ALERT AND VERBALLY RESPONSIVE. CAN MAKE NEEDS KNOWN. RESPIRATIONS EVEN AND UNLABORED. NO COMPLAINTS OF PAIN AT THIS TIME. FALL AND SAFETY PRECAUTIONS OBSERVED. RECEIVED 1-PERSON ASSIST WITH ADLS. KEPT PATIENT WARM, DRY, AND COMFORTABLE. LEFT PATIENT IN BED WITH BED WHEELS LOCKED, CALL LIGHT AND PERSONAL BELONGINGS WITHIN REACH. BED AT LOW POSITION AND BED ALARM ON.
[2019-08-16] MEDS: PREGABALIN 25 MG CAPSULE PO SCH ×3 (06:03→21:01)
[2019-08-16] MEDS: ACETAMINOPHEN 325 MG TABLET PO SCH ×3 (06:03→21:01)
[2019-08-16] MEDS: PANTOPRAZOLE SODIUM 40 MG TABLET.DR PO SCH (06:04)
[2019-08-16] MEDS: LEVOTHYROXINE SODIUM 100 MCG TABLET PO SCH (06:04)
[2019-08-16] MEDS: BLOOD SUGAR DIAGNOSTIC 1 EACH STRIP VI SCH ×4 (06:44→21:01)
[2019-08-16 08:00] VITALS: BP 122/56
[2019-08-16] MEDS: DONEPEZIL 10 MG TABLET PO SCH (10:01)
[2019-08-16] MEDS: MEMANTINE HCL 5 MG TABLET PO SCH ×2 (10:02→20:56)
[2019-08-16] MEDS: FERROUS SULFATE SLOW RELEASE 45 MG (ELEMENTAL) TABEC PO SCH (10:04)
[2019-08-16] MEDS: AMLODIPINE 5 MG TABLET PO SCH (10:04)
[2019-08-16] MEDS: ALLOPURINOL 100 MG TABLET PO SCH (10:04)
[2019-08-16] MEDS: Z GUARD REMEDY PASTE 57 GM TUBE TOP SCH ×2 (10:05→21:02)
[2019-08-16] MEDS: INSULIN REGULAR, HUMAN 300 UNIT/3 ML VIAL SQ PRN ×2 (12:02→21:08)
[2019-08-16 16:30] VITALS: BP 141/52
--- NOTE | 2019-08-16 19:16 | NUR ---
RECEIVED PATIENT IN BED, AWAKE, ALERT AND VERBALLY RESPONSIVE. PATIENT'S SON AT BEDSIDE. DENIES PAIN AT THIS TIME. ABLE TO MAKE NEEDS KNOWN. NO RESPIRATORY OR ACUTE DISTRESS. RESPIRATIONS EVEN AND UNLABORED. FALL AND SAFETY PRECAUTIONS OBSERVED, WILL CONTINUE TO MONITOR PATIENT. ALL NEEDS ATTENDED.
[2019-08-16] MEDS: ENOXAPARIN SODIUM 30 MG/0.3 ML DISP.SYRIN SQ SCH (20:57)
[2019-08-16] MEDS: INSULIN GLARGINE,HUM 300 UNITS/3 ML CARTRIDGE SQ SCH (20:58)
[2019-08-16 21:06] VITALS: BP 128/41
[2019-08-17 04:00] VITALS: BP 118/55
--- NOTE | 2019-08-17 05:30 | NUR ---
PATIENT IS IN BED, ASLEEP BUT EASILY AROUSED. RESPIRATIONS EVEN AND UNLABORED. NO COMPLAINTS OF PAIN AT THIS TIME. NO FACIAL GRIMACING OBSERVED. KEPT PATIENT WARM, DRY, AND COMFORTABLE. FALL AND SAFETY PRECAUTIONS OBSERVED.
[2019-08-17] MEDS: PREGABALIN 25 MG CAPSULE PO SCH ×3 (05:54→21:16)
[2019-08-17] MEDS: ACETAMINOPHEN 325 MG TABLET PO SCH ×3 (05:54→21:16)
[2019-08-17] MEDS: LEVOTHYROXINE SODIUM 100 MCG TABLET PO SCH (06:04)
[2019-08-17] MEDS: PANTOPRAZOLE SODIUM 40 MG TABLET.DR PO SCH (06:04)
[2019-08-17] MEDS: BLOOD SUGAR DIAGNOSTIC 1 EACH STRIP VI SCH ×4 (06:40→21:10)
[2019-08-17 08:00] VITALS: BP 150/53
[2019-08-17] MEDS: HYDROCODONE/APAP 5-325MG TABLET PO PRN (09:10)
[2019-08-17] MEDS: ERGOCALCIFEROL 50,000 UNIT CAPSULE PO SCH (09:34)
[2019-08-17] MEDS: DONEPEZIL 10 MG TABLET PO SCH (09:34)
[2019-08-17] MEDS: FERROUS SULFATE SLOW RELEASE 45 MG (ELEMENTAL) TABEC PO SCH (09:35)
[2019-08-17] MEDS: AMLODIPINE 5 MG TABLET PO SCH (09:35)
[2019-08-17] MEDS: MEMANTINE HCL 5 MG TABLET PO SCH ×2 (09:35→21:16)
[2019-08-17] MEDS: ALLOPURINOL 100 MG TABLET PO SCH (09:35)
[2019-08-17] MEDS: Z GUARD REMEDY PASTE 57 GM TUBE TOP SCH ×2 (09:36→21:11)
[2019-08-17 16:33] VITALS: BP 142/49
[2019-08-17] MEDS: INSULIN REGULAR, HUMAN 300 UNIT/3 ML VIAL SQ PRN ×2 (18:40→21:11)
[2019-08-17 20:28] VITALS: BP 140/49
[2019-08-17] MEDS: INSULIN GLARGINE,HUM 300 UNITS/3 ML CARTRIDGE SQ SCH (21:00)
[2019-08-17] MEDS: ENOXAPARIN SODIUM 30 MG/0.3 ML DISP.SYRIN SQ SCH (21:23)
--- NOTE | 2019-08-17 22:30 | NUR ---
Received pt resting in bed. AAO x2-3. Family was at bedside. No acute distress noted. Denies pain/ discomfort. Accucheck 77, held insulin and lantus. [place] juice given. No c/o dizziness. Other due meds given as ordered. Safety measures maintained. Call light and personal items within reach. Will continue to monitor.
[2019-08-18 04:00] VITALS: BP 123/54
[2019-08-18] MEDS: PREGABALIN 25 MG CAPSULE PO SCH ×2 (05:58→13:21)
[2019-08-18] MEDS: ACETAMINOPHEN 325 MG TABLET PO SCH ×2 (05:58→13:21)
[2019-08-18] MEDS: PANTOPRAZOLE SODIUM 40 MG TABLET.DR PO SCH (06:01)
[2019-08-18] MEDS: LEVOTHYROXINE SODIUM 100 MCG TABLET PO SCH (06:01)
[2019-08-18] MEDS: BLOOD SUGAR DIAGNOSTIC 1 EACH STRIP VI SCH ×2 (06:40→12:20)
[2019-08-18 07:30] VITALS: BP 169/57
[2019-08-18] MEDS: FERROUS SULFATE SLOW RELEASE 45 MG (ELEMENTAL) TABEC PO SCH (09:28)
[2019-08-18] MEDS: AMLODIPINE 5 MG TABLET PO SCH (09:28)
[2019-08-18] MEDS: MEMANTINE HCL 5 MG TABLET PO SCH (09:28)
[2019-08-18] MEDS: DONEPEZIL 10 MG TABLET PO SCH (09:28)
[2019-08-18] MEDS: ALLOPURINOL 100 MG TABLET PO SCH (09:28)
[2019-08-18] MEDS: Z GUARD REMEDY PASTE 57 GM TUBE TOP SCH (09:30)
[2019-08-18] MEDS: HYDROCODONE/APAP 5-325MG TABLET PO PRN (09:32)
[2019-08-18 12:06] LABS: CALCITRIOL VIT D,1,25 DIHYDROX 28.4 pg/mL (19.9-79.3)
--- NOTE | 2019-08-18 12:30 | NUR ---
BS of 131mg/dl. No Insulin given.
--- NOTE | 2019-08-18 15:27 | NUR ---
DISCHARGE NOTES: Patient is AAO x 2, able to express needs, IN NO acute distress; NO SOB noted. NO complains of pain at this time. On routine Tylenol 650mg PO q 8hrs. All due medications administered as ordered. Blood sugar checked and stable for patient. NO coverage needed before lunch. Daughter and grandson came to nut picker patient. All discharge paper works reviewed with daughter. Patient and family medication teaching given to daughter. Patient/family teaching also given on Lovenox and Insulin sliding scale administration. Informed family to F/UP with PCP and HOME HEALTH for further care. Prescriptions faxed to pt's pharmacy of choice. All belongings given to family. Discharge and belonging paper signed by daughter. Family stated understanding of discharge teaching. Family also stated will F/up with PCP regrading vaccinations. Thanked for the care provided. Patient assisted by nurse and PT via W/C and discharged at 15:20pm.
[2019-08-19 08:00] VITALS: BP 127/72
== END 2019-08-18 15:20 | disposition home health service (06) | DRG 559 ==
PROVIDERS: ADMIT Physical Medicine & Rehabilitation Pain Medicine; ATTEND Physical Medicine & Rehabilitation Pain Medicine
DX: S72.142D Displaced intertrochanteric fracture of left femur, subsequent encounter for closed fracture with routine healing (principal); G93.41 Metabolic encephalopathy; I50.33 Acute on chronic diastolic (congestive) heart failure; N17.0 Acute kidney failure with tubular necrosis; D62 Acute posthemorrhagic anemia; D68.59 Other primary thrombophilia; Z16.12 Extended spectrum beta lactamase (ESBL) resistance; N39.0 Urinary tract infection, site not specified; I13.0 Hypertensive heart and chronic kidney disease with heart failure and stage 1 through stage 4 chronic kidney disease, or unspecified chronic kidney disease; W06.XXXD Fall from bed, subsequent encounter; E11.22 Type 2 diabetes mellitus with diabetic chronic kidney disease; R53.83 Other fatigue; F03.90 Unspecified dementia, unspecified severity, without behavioral disturbance, psychotic disturbance, mood disturbance, and anxiety; N18.9 Chronic kidney disease, unspecified; M10.9 Gout, unspecified; M81.0 Age-related osteoporosis without current pathological fracture; D63.1 Anemia in chronic kidney disease; E03.9 Hypothyroidism, unspecified; I27.20 Pulmonary hypertension, unspecified; K21.9 Gastro-esophageal reflux disease without esophagitis; I35.8 Other nonrheumatic aortic valve disorders; E11.65 Type 2 diabetes mellitus with hyperglycemia; M19.90 Unspecified osteoarthritis, unspecified site; Z79.4 Long term (current) use of insulin; G62.9 Polyneuropathy, unspecified
CPT/HCPCS: 36415; 70030-TC; 71045; 73501; 82652; 83550; 83735; 83970; 84100; 84443; 85025; 87077; 87086; 93307; A9150; C1758; J1650; J1815; J2185; J3490; J7050; J8499